=== PATIENT | male | born 1975 | race African-American/Black ===

== ENCOUNTER 2017-10-12 07:52 | Emergency (ER) | payer SELFPAY ==
[2017-10-12] MEDS ORDERED: CYCLOBENZAPRINE HCL 10 MG TABLET PO ONE (08:16)
[2017-10-12] MEDS ORDERED: OXYCODONE-ACETAMINOPHEN 5-325 MG TABLET PO ONE (08:16)
--- NOTE | 2017-10-12 08:16 | ER Document Report ---
ED General - General Chief Complaint: Low Back Pain Stated Complaint: BACK PAIN Time Seen by Provider: 10/12/17 08:06 Mode of Arrival: Ambulatory Information source: Patient Notes: Patient is a 42-year-old male who has no history of chronic back pain who presents to the ER today for left lower back pain that radiates from the center of the low back to the left that started yesterday when he bent over and was sweeping in a hunched over position, when he stood up he felt a "very loud pop" and had immediate pain to the low back. He denies any numbness or tingling, loss of bladder or bowel function. He states "I am stuck and I cannot stand up completely." Patient has never had this happen before. - Related Data Allergies/Adverse Reactions: No Known Allergies Allergy (Unverified 10/12/17 07:56) Past Medical History - General Information source: Patient - Social History Smoking Status: Current Every Day Smoker Frequency of alcohol use: Occasional Drug Abuse: Marijuana Family History: Reviewed & Not Pertinent Patient has suicidal ideation: No Patient has homicidal ideation: No Renal/ Medical History: Denies: Hx Peritoneal Dialysis Review of Systems - Review of Systems Constitutional: No symptoms reported EENT: No symptoms reported Cardiovascular: No symptoms reported Respiratory: No symptoms reported Gastrointestinal: No symptoms reported Genitourinary: No symptoms reported Male Genitourinary: No symptoms reported Musculoskeletal: See HPI Skin: No symptoms reported Hematologic/Lymphatic: No symptoms reported Neurological/Psychological: No symptoms reported Physical Exam - Vital signs Vitals: Temp Pulse Resp BP Pulse Ox 98.0 F 76 18 133/97 H 98 10/12/17 07:58 10/12/17 07:58 10/12/17 07:58 10/12/17 07:58 10/12/17 07:58 - Notes Notes: PHYSICAL EXAMINATION: GENERAL: Obviously in pain, but in no acute distress. HEAD: Atraumatic, normocephalic. EYES: Pupils equal round and reactive to light, extraocular movements intact, sclera anicteric, conjunctiva are normal. NECK: Normal range of motion, supple without lymphadenopathy LUNGS: CTAB and equal. No wheezes rales or rhonchi. HEART: Regular rate and rhythm without murmurs ABDOMEN: Soft, no tenderness. No guarding, no rebound BACK: Lumbar vertebral tenderness, left-sided lumbar tenderness, Hunched at approximately 90 standing, holding onto IV pole, will not sit down or lie down GI/: no CVA tenderness EXTREMITIES: Normal range of motion, no pitting edema. No cyanosis. NEUROLOGICAL: Cranial nerves grossly intact. Normal sensory/motor exams. PSYCH: Normal mood, normal affect. SKIN: Warm, Dry, normal turgor, no rashes or lesions noted Course - Re-evaluation Re-evalutation: 10/13/17 16:22 X-ray of the lumbar spine negative for any acute pathology, MRI negative for any acute pathology, patient will be placed on muscle relaxers and given something for pain, he does look better and is able to stand at more of a 30 angle prior to discharge with medications given here. 10/15/17 16:23 - Vital Signs Vital signs: Temp Pulse Resp BP Pulse Ox 97.5 F 64 18 146/83 H 98 10/12/17 12:02 10/12/17 12:02 10/12/17 12:02 10/12/17 12:02 10/12/17 12:02 Discharge - Discharge Clinical Impression: Low back strain Qualifiers: Encounter type: initial encounter Qualified Code(s): S39.012A - Strain of muscle, fascia and tendon of lower back, initial encounter Condition: Stable Disposition: HOME, SELF-CARE Instructions: Low Back Pain ([facility]), Muscle Strain ([facility]), Warm Packs ([facility]) Additional Instructions: Return immediately for any new or worsening symptoms. Follow up with primary care provider, call tomorrow to make followup appointment. Prescriptions: Hydrocodone/Acetaminophen [[place] 5-325 mg Tablet] 2 tab PO Q4 PRN #15 tab PRN Reason: Methocarbamol [Robaxin 500 mg Tablet] 1,000 mg PO BID PRN #40 tablet PRN Reason: Forms: Return to Work
--- NOTE | 2017-10-12 09:20 | RADIOLOGY REPORT (SQ) ---
EXAM DESCRIPTION: L SPINE WHOLE COMPLETED DATE/TIME: 10/12/2017 8:41 am REASON FOR STUDY: bent over, back pop, left sided lumbar pain COMPARISON: None. NUMBER OF VIEWS: Five views including obliques. TECHNIQUE: AP, lateral, oblique, and sacral radiographic images acquired of the lumbar spine. LIMITATIONS: None. FINDINGS: MINERALIZATION: Normal. SEGMENTATION: Normal. No transitional anatomy. ALIGNMENT: Normal. VERTEBRAE: Maintained height. No fracture or worrisome bone lesion. DISCS: Preserved height. No significant osteophytes or end plate irregularity. POSTERIOR ELEMENTS: Pedicles and facets are intact. No pars defect or posterior arch defects. There is mild bilateral L4-5 and L5-S1 facet arthropathy. HARDWARE: None in the spine. PARASPINAL SOFT TISSUES: Normal. PELVIS: Bulky bony spurring upper 3rd left SI joint. OTHER: No other significant finding. IMPRESSION: Mild lower lumbar facet arthropathy. Mild left SI joint arthropathy. TECHNICAL DOCUMENTATION: JOB ID: [id number] [employer]- All Rights Reserved Reading location - IP/workstation name: [email or web address]
[2017-10-12] MEDS ORDERED: DIAZEPAM 5 MG TABLET PO ONE (09:51)
--- NOTE | 2017-10-12 11:37 | RADIOLOGY REPORT (SQ) ---
EXAM DESCRIPTION: MRI LUMBAR SPINE WITHOUT COMPLETED DATE/TIME: 10/12/2017 11:16 am REASON FOR STUDY: bent, felt loud pop, n/t left leg pain lumbar COMPARISON: Radiographs 10/12/2017 TECHNIQUE: Sagittal and Axial imaging includes T1, T2, STIR and gradient echo sequences. Coronal T2/ HASTE imaging. LIMITATIONS: None. FINDINGS: VISUALIZED UPPER ABDOMEN: Limited evaluation. No acute or suspicious findings suggested. SEGMENTATION: No transitional anatomy. The lowest well-developed disc space is labeled L5-S1. ALIGNMENT: Anatomic. VERTEBRAE: Intact. BONE MARROW: Normal. No marrow replacement or reactive changes. DISC SIGNAL: Normal. No significant abnormal signal or loss of height. POSTERIOR ELEMENTS: Intact. There is an area of decreased signal intensity at T11-12 posteriorly to the right of the midline on the sagittal images. Possible facet overgrowth. This area is not inclu ded in the axial series. HARDWARE: None in the spine. CORD AND CONUS: Normal in size and signal intensity. Conus at the T12-L1 level. SOFT TISSUES: No aortic aneurysm seen. No bulky retroperitoneal adenopathy or mass. No paraspinal mas s or fluid. L1-L2: No significant spinal stenosis or exit foraminal stenosis. L2-L3: No significant spinal stenosis or exit foraminal stenosis. L3-L4: No significant spinal stenosis or exit foraminal stenosis. L4-L5: No significant spinal stenosis or exit foraminal stenosis. L5-S1: No significant spinal stenosis or exit foraminal stenosis. LOWER THORACIC: Incompletely imaged. No stenosis seen. SACRUM: Visualized upper sacrum intact. OTHER: No other significant findings. IMPRESSION: 1. No significant disc pathology is seen. No spinal stenosis is appreciated. 2. Possible posterior osseous lesion at T11-12. Recommend the patient have additional axial imaging at this level. MR or CT. TECHNICAL DOCUMENTATION: JOB ID: [id number] [employer]- All Rights Reserved Reading location - IP/workstation name: [email or web address]
[2017-10-12 12:03] VITALS: BP 146/83
== END 2017-10-12 12:02 | disposition home or self-care (01) ==
LOC: ER 07:52
DX: S39.012A Strain of muscle, fascia and tendon of lower back, initial encounter (principal); X58.XXXA Exposure to other specified factors, initial encounter; F17.200 Nicotine dependence, unspecified, uncomplicated
CPT/HCPCS: 72110; 72148; 99283